=== PATIENT | female | born 1940 | race Caucasian/White ===

== ENCOUNTER → 2017-10-26 13:19 | Outpatient (POV) | payer MEDICARE, OTHER, SELFPAY | PROVIDERS: PCP Internal Medicine; Visit Provider Internal Medicine | DX: Z00.00 Encounter for general adult medical examination without abnormal findings (principal) ==

== ENCOUNTER 2018-01-21 13:58 | Observation (INO) ==
--- NOTE | 2018-01-21 14:31 | Emergency Department Note ---
ED Disposition Clinical Impression: COPD exacerbation Disposition: Still a Patient Condition on Discharge: Fair Referrals: Eric Sosa [Primary Care Provider] - - Critical Care Critical Care Time: No Attestation: On 01/21/18, the high probability of a clinically significant, sudden or life threatening deterioration of the following system(s) required my full and direct attention, intervention and personal management. The time I documented below is in addition to time spent performing reported procedures but includes the following listed in this critical care notation. Medical Decision Making - Miky Inquiry Pt receiving controlled substance: No Vital Signs: 01/21/18 14:07 01/21/18 14:30 01/21/18 15:19 Temperature 98.4 F Temperature Source Oral Pulse Rate 72 73 Pulse Rate [Apical] 72 Respiratory Rate 20 Blood Pressure [Right Arm] 140/72 Blood Pressure Mean [Right Arm] 94 Blood Pressure Source [Right Arm] Automatic Cuff Blood Pressure Position [Right Arm] Sitting 02 Sat by Pulse Oximetry 95 Oxygen Delivery Method Room Air 01/21/18 16:23 Temperature Temperature Source Pulse Rate Pulse Rate [Apical] 70 Respiratory Rate Blood Pressure [Right Arm] 133/68 Blood Pressure Mean [Right Arm] 89 Blood Pressure Source [Right Arm] Automatic Cuff Blood Pressure Position [Right Arm] Sitting 02 Sat by Pulse Oximetry 96 Oxygen Delivery Method Room Air - Lab Data Lab Results 01/21/18 14:55: WBC 6.0, RBC 4.22, Hgb 11.5 L, Hct 35.8 L, MCV 84.8, MCH 27.2, MCHC 32.1, RDW 15.5, Plt Count 416, MPV 7.2 L, Neut % (Auto) 54.4, Lymph % (Auto) 21.4, [place] % (Auto) 7.2, Eos % (Auto) 16.3 H, Baso % (Auto) 0.6, Neut # (Auto) 3.3, Lymph # (Auto) 1.3, [place] # (Auto) 0.4, Eos # (Auto) 1.0 H, Baso # (Auto) 0.0 01/21/18 14:55: Sodium 141, Potassium 4.2, Chloride 103, Carbon Dioxide 28, Anion Gap 14.2, BUN 21 H, Creatinine 1.37 H, Estimated Creat Clear 38, Estimated GFR 37 L, Est GFR ( Amer) 45 L, Glucose 109 H, Calcium 9.4, Total Bilirubin 0.3, AST 12 L, ALT 27, Alkaline Phosphatase 107, Troponin I < 0.02, Total Protein 7.2, Albumin 3.3 L, Globulin 3.9 H, Albumin/Globulin Ratio 0.8 L 01/21/18 14:55: Lactate 1.6 01/21/18 14:55: B-Natriuretic Peptide 128 H Result diagrams: 01/21/18 14:55 01/21/18 14:55 Orders (Tests/Meds): ED MEDICATIONS Discontinued Medications Generic Name Dose Route Start Last Admin Trade Name Freq PRN Reason Stop Dose Admin Albuterol/Ipratropium 3 ml 01/21/18 14:26 01/21/18 14:30 Duoneb 3ml [facility] 01/21/18 14:27 3 ml ONCE ONE Administration Albuterol/Ipratropium 3 ml 01/21/18 15:07 01/21/18 15:19 Duoneb 3ml Neb 01/21/18 15:08 3 ml ONCE ONE Administration Methylprednisolone Sodium Succinate 125 mg 01/21/18 14:41 01/21/18 16:01 Solu-Medrol 125mg/2ml Vial IV 01/21/18 14:42 125 mg ONCE ONE Administration ORDERS Category Date Time Status Chest XR -- portable [XR chest portable] Stat Exams 01/21/18 14:26 Taken Upper Respiratory Panel, PCR Stat Lab 01/21/18 15:18 Ordered Blood Culture Stat Micro 01/21/18 14:55 Received - Radiology Data #1 Image(s): Chest Image Reviewed: Yes I reviewed the patient's radiology image Preliminary Findings: Normal/NAD - ECG Data Tracing #1 EKG interpreted by Slick Segura MD: Rhythm: sinus Rate: 72 Mertens: normal Ectopy: none Conduction: normal ST Segment Changes: none T Wave Changes: none Q Waves: none No evidence of acute ischemia or injury Normal electrocardiogram - Physician Consults Physician Consulted: Christian Gross Time: 16:49 Reason -: Admission Comment/Response: Agrees to admit the patient to the hospital. We discussed the patient's clinical information, including history, exam, laboratory and radiology results and ED course. Per hospital procedure, I will write temporary bridge inpatient orders on the patient. Specific orders requested by the admitting physician: Continue nebulizer treatments and steroids, oxygen. No antibiotics at this time. - Reevaluation(s) Time: 15:57 Reevaluation #1: Improved, but still wheezing throughout. Pulse ox 90-91%. Discussed disposition. Patient and family would prefer to stay overnight. General Adult HPI - General Chief complaint: Shortness of Breath/Dyspnea Stated complaint: coughing, soa, wheezing Time Seen by Provider: 01/21/18 14:31 Mode of Arrival: Wheelchair Limitations: No Limitations Description of Symptoms (Recalled from ER Triage Doc. by RN): Pt reports dry hacking cough, pt reports she has been having "coughing fits", pt reports "when I have these fits I can't catch my breath". Pt reports coughing fits first began Wednesday of this week. Pt daughter reports pt has been wheezing. Pt reports her chest has been feeling tight - History of Present Illness HPI narrative: Has a cough with clear phlegm, shortness of breath, wheezing since Wednesday. No rhinorrhea or sore throat. No fever noted. She had some chest pain the first day, but none since. She has COPD. She is on inhalers, but not nebulizers. She is not on home oxygen. She is a former smoker. - Related Data Home Medications Medication Instructions Recorded Confirmed Aspirin [Aspir 81] 81 mg PO DAILY 07/09/17 01/21/18 Atorvastatin Calcium [Atorvastatin 80 mg PO HS 07/09/17 01/21/18 80mg Tab] Cholecalciferol (Vitamin D3) 50,000 unit PO DAILY 07/09/17 01/21/18 [Vitamin D3 50,000 unit Cap] Multivitamin/Iron/Folic Acid 1 each PO DAILY 07/09/17 01/21/18 [Multi Complete-Iron Tablet] Tiotropium [place] [Spiriva 1 puff INHALATION DAILY 07/09/17 01/21/18 18mcg/puff inhaler] Amlodipine Besylate [Norvasc 5mg 5 mg PO DAILY 07/20/17 01/21/18 tablet] LORazepam [Ativan 1mg tablet] 1 mg PO ONCE PRN 07/20/17 01/21/18 Metoprolol Tartrate 50 mg PO BID 07/20/17 01/21/18 Gabapentin [Gabapentin 300mg Cap] 300 mg PO DAILY 01/21/18 01/21/18 Lisinopril [Lisinopril 5mg Tablet] 5 mg PO DAILY 01/21/18 01/21/18 Omeprazole [Omeprazole 20mg 20 mg PO DAILY 01/21/18 01/21/18 Capsule] Potassium Chloride [K-Tab ER 10 20 meq PO DAILY 01/21/18 01/21/18 mEq] Sertraline HCl [Zoloft 50mg tablet] 50 mg PO HS 01/21/18 01/21/18 hydroCHLOROthiazide [HCTZ 25mg 25 mg PO DAILY 01/21/18 01/21/18 tab] Allergies Allergy/AdvReac Type Severity Reaction Status Date / Time adhesive tape Allergy Intermediate I-RASH Verified 07/09/17 08:55 poison ted extract Allergy Unknown "COVERS Verified 07/09/17 08:55 BODY" [facility] History I have reviewed the patient's past medical history: Yes Medical History: Reports:: Coronary Artery Disease, Hyperlipidemia, Hypertension, Lung Disease (COPD), Seizures Denies:: Diabetes Mellitus Type 1, Diabetes Mellitus Type 2, Internal Pac emaker Laterality Cases: Bilateral: Tonsillectomy Other Surgeries: Yes: Cardiac Catheterization. No: Pacemaker - Social History Smoking Status: Former smoker Alcohol Intake: never - Psychiatric History Expresses thoughts of harming self/others: None Suicide Plan Description: No Plan ROS Obtained: Yes All systems reviewed & no additional complaints - Constitutional Constitutional: Denies fever(s) - ENT Ears, Nose, Mouth, and Throat: Denies nasal discharge, Denies sore throat - Cardiovascular Cardiovascular: Reports chest pain, Reports leg edema (Chronic mild left leg edema) - Respiratory Respiratory: Yes cough, Yes dyspnea, Yes wheezing - Gastrointestinal Gastrointestingal: Denies: diarrhea, vomiting - Neurologic Neurologic: Reports other (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 Absent: distention, tenderness - Expanded Lower Extremity Exam Left Comment: Minimal pitting edema left leg - Neurological Exam Neurological exam: Present: alert, oriented X3, motor sensory deficit (Left hemiparesis, particularly left arm) - Psychiatric Psychiatric exam: Present: normal affect - Skin Skin exam: Present: warm, dry
[2018-01-21 15:12] LABS: Basophils % 0.6 % (0.1-2.0); Eosinophils % 16.3 % (0.1-12.0); Hematocrit 35.8 % (37.0-47.0); Hemoglobin 11.5 g/dL (12.2-16.2); Lymphocytes # 1.3 K/mm3 (0.7-4.5); Lymphocytes % 21.4 % (10-50); Mean Corpuscular HGB Conc 32.1 g/dL (31.8-35.4); Mean Corpuscular Hemoglobin 27.2 pg (27.0-31.2); Mean Corpuscular Volume 84.8 fl (81-99); Mean Platelet Volume 7.2 fl (7.4-10.4); Monocytes # 0.4 K/mm3 (0.1-1.0); Monocytes % 7.2 % (1.7-9.3); Neutrophils # 3.3 K/mm3 (1.8-7.8); Neutrophils % 54.4 % (37.0-80.0); Platelet Count 416 K/mm3 (142-424); Red Blood Count 4.22 M/mm3 (4.20-5.40); Red Cell Distribution Width 15.5 % (11.5-17.5)
[2018-01-21 15:27] LABS: Alanine Aminotransferase 27 U/L (12-78); Albumin Level 3.3 gm/dL (3.4-5.0); Albumin/Globulin Ratio 0.8 (1.1-1.8); Alkaline Phosphatase 107 U/L (46-116); Anion Gap 14.2 mEq/L (5-15); Aspartate Amino Transferase 12 U/L (15-37); Bilirubin,Total 0.3 mg/dL (0.2-1.0); Blood Urea Nitrogen 21 mg/dL (7-18); Calcium 9.4 mg/dL (8.5-10.1); Carbon Dioxide 28 mmol/L (21.0-32.0); Chloride 103 mmol/L (98-107); Globulin 3.9 gm/dl (1.3-3.2); Glucose 109 mg/dL (74-106); Potassium 4.2 mmoL/L (3.5-5.1); Sodium 141 mmol/L (136-145); Total Protein,Serum 7.2 gm/dL (6.4-8.2)
--- NOTE | 2018-01-22 09:44 | H&P/Discharge Summary ---
General - General Admission date:: 01/21/18 Discharge date: 01/22/18 *Admission Date: 01/21/18 *Chief complaint: Shortness of breath *History of present illness: Ms. Kwok is a 77-year-old female with history of COPD, and other comorbidities who presented with worsening cough, shortness of breath and slight increase in sputum production. Initially presented to the ER due to her shortness of breath, was a started on steroids and supplemental oxygen. Denies syncope, chest pain, palpitations, fevers, emesis, hemoptysis. Reports feeling better after getting nebulizers over the course of the evening and oxygen overnight. Antibiotics were not initially started. Chest x-ray was therefore pneumonia. Admitted to medicine service for further management. [facility] History I have reviewed the patient's past medical history: Yes Medical History: Reports:: Coronary Artery Disease, Hyperlipidemia, Hypertension, Lung Disease (COPD), Seizures Denies:: Cancer, Diabetes Mellitus Type 1, Diabetes Mellitus Type 2, Internal Pacemaker, MRSA Other Medical History: Reports: Arthritis, Cataracts Laterality Cases: Bilateral: Tonsillectomy Other Surgeries: Yes: Cardiac Catheterization. No: Pacemaker Amputation: No Fractures: No - *Social History Educational Level: Completed High School Smoking Status: Former smoker Tobacco Type: cigarettes Smoking End Date: 2005 Alcohol Intake: never Occupational Status: retired Housing: house Household Members: spouse - Psychiatric History Expresses thoughts of harming self/others: None Suicide Plan Description: No Plan *Family Hx:: Cancer, Coronary Artery Disease, Heart Attack, Hyperlipidemia, Hypertension Review of Systems - Review of Systems Review of systems:: pertinent systems reviewed and negative unless documented below - *Neurologic Reports other (Left hemiparesis from prior CVA) Exam Vital signs and Labs for Last 24 Hours: Temp Pulse Resp BP Pulse Ox 97.3 F L 84 19 105/48 L 95 01/22/18 08:00 01/22/18 08:00 01/22/18 08:00 01/22/18 08:00 01/22/18 08:00 Laboratory Results - last 24 hr 01/21/18 14:55: WBC 6.0, RBC 4.22, Hgb 11.5 L, Hct 35.8 L, MCV 84.8, MCH 27.2, MCHC 32.1, RDW 15.5, Plt Count 416, MPV 7.2 L, Neut % (Auto) 54.4, Lymph % (Auto) 21.4, [place] % (Auto) 7.2, Eos % (Auto) 16.3 H, Baso % (Auto) 0.6, Neut # (Auto) 3.3, Lymph # (Auto) 1.3, [place] # (Auto) 0.4, Eos # (Auto) 1.0 H, Baso # (Auto) 0.0 01/21/18 14:55: Sodium 141, Potassium 4.2, Chloride 103, Carbon Dioxide 28, Anion Gap 14.2, BUN 21 H, Creatinine 1.37 H, Estimated Creat Clear 38, Estimated GFR 37 L, Est GFR ( Amer) 45 L, Glucose 109 H, Calcium 9.4, Total Bilirubin 0.3, AST 12 L, ALT 27, Alkaline Phosphatase 107, Troponin I < 0.02, Total Protein 7.2, Albumin 3.3 L, Globulin 3.9 H, Albumin/Globulin Ratio 0.8 L 01/21/18 14:55: Lactate 1.6 01/21/18 14:55: B-Natriuretic Peptide 128 H I & O for Last 24 hours: Intake & Output 01/19/18 01/20/18 01/21/18 01/22/18 23:59 23:59 23:59 23:59 Intake Total 130 / 130 370 / 370 Output Total 240 / 240 Balance -110 / -110 370 / 370 Weight 74.106 kg - *Routine HEENT Exam Head: Present: normocephalic, atraumatic Eye: Present: EOMI, PERRL ENT: Present: mucous membranes moist - *Routine Neck Exam Present: supple. Absent: JVD, lymphadenopathy - *Routine Respiratory Exam Present: prolonged expiratory phase, diminished air movement. Absent: rales, wheezes, crackles - *Routine Cardiovascular Exam Present: RRR, Normal S1, Normal S2. Absent: murmur - *Routine Abdominal Exam Present: soft, normoactive bowel sounds. Absent: tenderness - *Routine Rectal Exam Patient deferred: visual exam - *Routine Exam Patient deferred: external exam - *Routine Extremities Exam Absent: cyanosis, clubbing, edema - *Routine Skin Exam Present: intact. Absent: cyanosis, erythema - *Routine Neurological Exam Present: alert, oriented X3, CN II-XII intact. Absent: altered mental status Hospital Course Hospital Course: Admitted to the floor for further management of her COPD exacerbation. Improved overnight. Assessed for home oxygen requirement this morning with normal O2 sats greater than 90. Symptoms have defervesced. Meeting criteria for discharge home. We will initiate antibiotics in addition oral steroids for 5 days of antibiotic and steroid therapy. Additionally provided sample of steel toe for daily LABA/LAMA combo therapy. Prescribe spacer to use with albuterol at home. Plan to transition back to Spiriva after completion of Stiolto. Results Labs on day of discharge: Labs from last 24 hours 01/21/18 01/21/18 01/21/18 14:55 14:55 14:55 WBC RBC Hgb Hct MCV MCH MCHC RDW Plt Count MPV Neut % (Auto) Lymph % (Auto) [place] % (Auto) Eos % (Auto) Baso % (Auto) Neut # (Auto) Lymph # (Auto) [place] # (Auto) Eos # (Auto) Baso # (Auto) Sodium 141 Potassium 4.2 Chloride 103 Carbon Dioxide 28 Anion Gap 14.2 BUN 21 H Creatinine 1.37 H Estimated Creat Clear 38 Estimated GFR 37 L Est GFR ( Amer) 45 L Glucose 109 H Lactate 1.6 Calcium 9.4 Total Bilirubin 0.3 AST 12 L ALT 27 Alkaline Phosphatase 107 Troponin I < 0.02 B-Natriuretic Peptide 128 H Total Protein 7.2 Albumin 3.3 L Globulin 3.9 H Albumin/Globulin Ratio 0.8 L 01/21/18 14:55 WBC 6.0 RBC 4.22 Hgb 11.5 L Hct 35.8 L MCV 84.8 MCH 27.2 MCHC 32.1 RDW 15.5 Plt Count 416 MPV 7.2 L Neut % (Auto) 54.4 Lymph % (Auto) 21.4 [place] % (Auto) 7.2 Eos % (Auto) 16.3 H Baso % (Auto) 0.6 Neut # (Auto) 3.3 Lymph # (Auto) 1.3 [place] # (Auto) 0.4 Eos # (Auto) 1.0 H Baso # (Auto) 0.0 Sodium Potassium Chloride Carbon Dioxide Anion Gap BUN Creatinine Estimated Creat Clear Estimated GFR Est GFR ( Amer) Glucose Lactate Calcium Total Bilirubin AST ALT Alkaline Phosphatase Troponin I B-Natriuretic Peptide Total Protein Albumin Globulin Albumin/Globulin Ratio DS: Diagnosis - Discharge Diagnosis (1) COPD exacerbation Status: Acute Discharge Medications - Medications for Discharge Home Medication List at Discharge: New levoFLOXacin [Levaquin 500mg tab] 500 mg PO DAILY #5 tab predniSONE [Deltasone 10mg tablet] 40 mg PO DAILY 5 Days #20 tablet Inhaler, Assist Devices [Aerochamber/Optihaler (Adult)] 1 unit MC DIRECTED #1 kit Continue Multivitamin/Iron/Folic Acid [Multi Complete-Iron Tablet] 1 each PO DAILY Aspirin [Aspir 81] 81 mg PO DAILY Tiotropium [place] [Spiriva 18mcg/puff inhaler] 1 puff INHALATION DAILY Atorvastatin Calcium [Atorvastatin 80mg Tab] 80 mg PO HS Metoprolol Tartrate 50 mg PO BID Amlodipine Besylate [Norvasc 5mg tablet] 5 mg PO DAILY LORazepam [Ativan 1mg tablet] 1 mg PO NEEDED PRN PRN Reason: Anxiety Omeprazole [Omeprazole 20mg Capsule] 20 mg PO DAILY hydroCHLOROthiazide [HCTZ 25mg tab] 25 mg PO DAILY Gabapentin [Gabapentin 300mg Cap] 300 mg PO HS Lisinopril [Lisinopril 5mg Tablet] 5 mg PO DAILY Cholecalciferol (Vitamin D3) [Vitamin D3 50,000 unit Cap] 50,000 unit PO DAILY Potassium Chloride [K-Tab ER 10 mEq] 20 meq PO DAILY Sertraline HCl [Zoloft 50mg tablet] 50 mg PO HS Disposition Disposition: Home, Self-Care
--- NOTE | 2018-01-22 11:37 | Pharmacy Consult Notes ---
[facility] Pharmacy VTE Monitoring - Patient Demographics Admission date: 01/21/18 Report Date: 01/22/18 Time: 11:36 Allergies/Adverse Reactions: Patient Allergies adhesive tape Allergy (Intermediate, Verified 07/09/17 08:55) I-RASH poison ted extract Allergy (Unknown, Verified 07/09/17 08:55) "COVERS BODY" Height: 1.57 m Weight: 74.106 kg Patient Problems: Current Active Problems COPD exacerbation (Acute) - VTE Risk Labs: VTE Related Lab Results Hgb 11.5 g/dL (12.2-16.2) L 01/21/18 14:55 Hct 35.8 % (37.0-47.0) L 01/21/18 14:55 Plt Count 416 K/mm3 (142-424) 01/21/18 14:55 BUN 21 mg/dL (7-18) H 01/21/18 14:55 Creatinine 1.37 mg/dL (0.55-1.02) H 01/21/18 14:55 Estimated Creat Clear 38 mL/min (50-200) 01/21/18 14:55 VTE Score: 4 VTE Risk Level: Low Risk - Prophylaxis VTE Prophylaxis Ordered?: Yes Types of VTE Prophylaxis: TEDS Knee High Location of Applied Device: Bilateral Lower Extremeties
== END 2018-01-22 13:32 | disposition home or self-care (01) ==
LOC: 2ND 13:58 → ER 13:58 → 2ND 18:15
PROVIDERS: ADMIT Family Medicine; ATTEND Internal Medicine Adolescent Medicine

== ENCOUNTER 2018-03-06 21:02 | Inpatient (IN) ==
[2018-03-06 22:00] LABS: Basophils # 0.1 K/mm3 (0-0.2); Basophils % 0.5 % (0.1-2.0); Eosinophils # 0.5 K/mm3 (0.0-0.4); Eosinophils % 3.8 % (0.1-12.0); Hemoglobin 10.9 g/dL (12.2-16.2); Lymphocytes # 1.6 K/mm3 (0.7-4.5); Lymphocytes % 12.6 % (10-50); Mean Corpuscular Hemoglobin 27.2 pg (27.0-31.2); Mean Corpuscular Volume 85.1 fl (81-99); Mean Platelet Volume 7.9 fl (7.4-10.4); Monocytes # 0.9 K/mm3 (0.1-1.0); Monocytes % 6.9 % (1.7-9.3); Neutrophils # 9.6 K/mm3 (1.8-7.8); Neutrophils % 76.3 % (37.0-80.0); Platelet Count 360 K/mm3 (142-424); Red Cell Distribution Width 16.1 % (11.5-17.5); White Blood Count 12.6 K/mm3 (4.8-10.8)
[2018-03-06 22:13] LABS: Alanine Aminotransferase 25 U/L (12-78); Albumin Level 3.4 gm/dL (3.4-5.0); Albumin/Globulin Ratio 1.2 (1.1-1.8); Alkaline Phosphatase 99 U/L (46-116); Aspartate Amino Transferase 31 U/L (15-37); Bilirubin,Total 0.4 mg/dL (0.2-1.0); Blood Urea Nitrogen 19 mg/dL (7-18); Carbon Dioxide 23 mmol/L (21.0-32.0); Chloride 105 mmol/L (98-107); Globulin 2.9 gm/dl (1.3-3.2); Glucose 98 mg/dL (74-106); Sodium 140 mmol/L (136-145); Total Protein,Serum 6.3 gm/dL (6.4-8.2)
[2018-03-06 22:18] LABS: Calcium 8.8 mg/dL (8.5-10.1)
[2018-03-06 23:00] LABS: Microscopic, Urine URINE MICROSCOPIC (MICROSCOPIC)
[2018-03-06 23:03] LABS: Appearance,Urine CLEAR (Clear); Blood, Urine Negative (Negative); Color,Urine YELLOW (Yellow); Glucose,Urine (UA) Negative (Negative); Ketones,Urine TRACE (Negative); Leukocyte Esterase,Urine Negative (Negative); PH,Urine 5.5 (5.0-8.5); Protein,Urine Negative (Negative); Specific Gravity, Urine 1.025 (1.005-1.030); Urobilinogen,Urine 0.2 EU/dl (0.2)
--- NOTE | 2018-03-06 23:03 | Emergency Department Note ---
ED Disposition Clinical Impression: Renal insufficiency Community acquired pneumonia Qualifiers: Laterality: left Lung location: lower lobe of lung Qualified Code(s): J18.1 - Lobar pneumonia, unspecified organism Anemia Qualifiers: Anemia type: unspecified type Qualified Code(s): D64.9 - Anemia, unspecified Disposition: Admitted as Observation Condition on Discharge: Good Referrals: Eric Sosa [Primary Care Provider] - - Critical Care Critical Care Time: No Attestation: On 03/06/18, the high probability of a clinically significant, sudden or life threatening deterioration of the following system(s) required my full and direct attention, intervention and personal management. The time I documented below is in addition to time spent performing reported procedures but includes the following listed in this critical care notation. Medical Decision Making - Medical Records Medical records reviewed: Yes: I reviewed the patient's medical records. - Miky Inquiry Pt receiving controlled substance: No Vital Signs: 03/06/18 21:05 03/06/18 21:26 03/06/18 21:56 Temperature 99.1 F 101.4 F H Temperature Source Oral Rectal Pulse Rate 84 Pulse Rate [Right] 92 H Respiratory Rate 26 H Blood Pressure [Right Arm] 170/62 H Blood Pressure Mean [Right Arm] 98 02 Sat by Pulse Oximetry 89 L Oxygen Delivery Method Room Air - Lab Data Lab results reviewed: Yes: I reviewed the patient's lab results. Lab Results 03/06/18 21:34: WBC 12.6 H, RBC 4.00 L, Hgb 10.9 L, Hct 34.0 L, MCV 85.1, MCH 27.2, MCHC 32.0, RDW 16.1, Plt Count 360, MPV 7.9, Neut % (Auto) 76.3, Lymph % (Auto) 12.6, [place] % (Auto) 6.9, Eos % (Auto) 3.8, Baso % (Auto) 0.5, Neut # (Auto) 9.6 H, Lymph # (Auto) 1.6, [place] # (Auto) 0.9, Eos # (Auto) 0.5 H, Baso # (Auto) 0.1 03/06/18 21:34: Sodium 140, Potassium 5.0, Chloride 105, Carbon Dioxide 23, Anion Gap 17.0 H, BUN 19 H, Creatinine 1.37 H, Estimated Creat Clear 38, Estimated GFR 37 L, Est GFR ( Amer) 45 L, Glucose 98, Calcium 8.8, Total Bilirubin 0.4, AST 31, ALT 25, Alkaline Phosphatase 99, Troponin I < 0.02, Total Protein 6.3 L, Albumin 3.4, Globulin 2.9, Albumin/Globulin Ratio 1.2 03/06/18 21:34: Lactate 1.5 03/06/18 21:34: Influenza Type A Ag Negative, Influenza Type B Ag Negative Result diagrams: 03/06/18 21:34 03/06/18 21:34 Orders (Tests/Meds): ED MEDICATIONS Generic Name Dose Route Start Last Admin Trade Name Freq PRN Reason Stop Dose Admin Sodium Chloride 10 ml 03/06/18 21:15 Saline Flush 10ml Syringe IV 04/05/18 21:14 NEEDED PRN Maintain IV Site Sodium Chloride 3 ml 03/06/18 21:19 Sodium Chloride 3% 15ml [facility] 04/05/18 21:18 ONCE PRN INDUCE SPUTUM COLLECTION Discontinued Medications Generic Name Dose Route Start Last Admin Trade Name Freq PRN Reason Stop Dose Admin Acetaminophen 1,000 mg 03/06/18 21:40 03/06/18 21:41 Tylenol 500mg Tablet PO 03/06/18 21:41 1,000 mg ONCE ONE Administration Albuterol/Ipratropium 3 ml 03/06/18 21:20 03/06/18 21:56 Duoneb 3ml [facility] 03/06/18 21:21 3 ml ONCE ONE Administration Methylprednisolone Sodium Succinate 125 mg 03/06/18 21:20 03/06/18 21:41 Solu-Medrol 125mg/2ml Vial IV 03/06/18 21:21 125 mg ONCE ONE Administration ORDERS Category Date Time Status XR chest portable Stat Exams 03/06/18 21:15 Taken UA [Urinalysis and Microscopic] Stat Lab 03/06/18 22:55 Received Blood Culture Stat Micro 03/06/18 21:34 Received Sputum Culture & Gram Stain Stat Micro 03/06/18 21:23 Received ECG Request by /Gomez Stat Y 03/06/18 21:15 Ordered - Radiology Data #1 Image(s): Chest Image Reviewed: Yes I reviewed the patient's radiology image Preliminary Findings: Abnormal (lt lower lobe ) - ECG Data Tracing #1 Normal Sinus Rhythm: Yes Ischemic changes: non-specific ST-T wave changes - Physician Consults Physician Consulted: [email or web address] Reason -: Admission Resp/SOB HPI - General Chief Complaint: Shortness of Breath/Dyspnea Stated Complaint: Cough, SOA Time Seen by Provider: 03/06/18 21:45 Mode of Arrival: Wheelchair Source of Information: Patient, Spouse, Relative, Medical Record Limitations: No Limitations Description of Symptoms (Recalled from ER Triage Doc. by RN): Pt here today states for 4 days she has had a cough, SOA, and weakness, pt states she been coughing up green thick sputum. - History of Present Illness over the last few days progressive prod cough - green sputum with no rash and no hemoptysis- MD Complaint: shortness of breath, cough Onset (ago): day(s) Severity: moderate Associated symptoms: denies other symptoms Treatment prior to arrival: none - Related Data Home oxygen amount: none Home Medications Medication Instructions Recorded Confirmed Aspirin [Aspir 81] 81 mg PO DAILY 07/09/17 03/06/18 Atorvastatin Calcium [Atorvastatin 80 mg PO HS 07/09/17 03/06/18 80mg Tab] Multivitamin/Iron/Folic Acid 1 each PO DAILY 07/09/17 03/06/18 [Multi Complete-Iron Tablet] Tiotropium [place] [Spiriva 1 puff INHALATION DAILY 07/09/17 03/06/18 18mcg/puff inhaler] Amlodipine Besylate [Norvasc 5mg 5 mg PO DAILY 07/20/17 03/06/18 tablet] Metoprolol Tartrate 50 mg PO BID 07/20/17 03/06/18 Gabapentin [Gabapentin 300mg Cap] 300 mg PO HS 01/21/18 03/06/18 Lisinopril [Lisinopril 5mg Tablet] 5 mg PO DAILY 01/21/18 03/06/18 Omeprazole [Omeprazole 20mg 20 mg PO DAILY 01/21/18 03/06/18 Capsule] Potassium Chloride [K-Tab ER 10 20 meq PO DAILY 01/21/18 03/06/18 mEq] Sertraline HCl [Zoloft 50mg tablet] 50 mg PO HS 01/21/18 03/06/18 hydroCHLOROthiazide [HCTZ 25mg 25 mg PO DAILY 01/21/18 03/06/18 tab] Cholecalciferol (Vitamin D3) 2,000 unit PO DAILY 01/22/18 03/06/18 [Vitamin D3] Allergies Allergy/AdvReac Type Severity Reaction Status Date / Time adhesive tape Allergy Intermediate I-RASH Verified 07/09/17 08:55 poison ted extract Allergy Unknown "COVERS Verified 07/09/17 08:55 BODY" [facility] History - Hepatitis A Screen Drug use history?: No High risk sexual behaviors?: No History of sexually transmitted infection?: No Currently employed?: No Childcare worker?: No Do you have indoor plumbing?: Yes Do you have electricity?: Yes Attestation statement:: This patient has been screened for Hepatitis A risk factors. I have reviewed the patient's past medical history: Yes Medical History: Reports:: Coronary Artery Disease, Hyperlipidemia, Hypertension, Lung Disease (COPD), Seizures Denies:: Cancer, Diabetes Mellitus Type 1, Diabetes Mellitus Type 2, Internal Pacemaker, MRSA Other Medical History: Reports: Arthritis, Cataracts Laterality Cases: Bilateral: Tonsillectomy Other Surgeries: Yes: Cardiac Catheterization. No: Pacemaker Amputation: No Fractures: No - Social History Smoking Status: Former smoker Tobacco Type: cigarettes Alcohol Intake: never Occupational Status: retired Housing: house Household Members: spouse - Psychiatric History Expresses thoughts of harming self/others: None Suicide Plan Description: No Plan Family Hx:: Cancer, Coronary Artery Disease, Heart Attack, Hyperlipidemia, Hypertension ROS Obtained: Yes All systems reviewed & no additional complaints - Constitutional Constitutional: Reports fever(s) - Eyes Eyes: Denies change in vision - ENT Ears, Nose, Mouth, and Throat: Denies sore throat - Cardiovascular Cardiovascular: Denies chest pain, Reports dyspnea - Respiratory Respiratory: Yes as per HPI, Yes change in phlegm color, Yes cough, No coughing up blood - Gastrointestinal Gastrointestingal: Denies: vomiting - Genitourinary Female Genitourinary: Denies dysuria - Integumentary/Breasts Skin/Breast: Denies rash - Neurologic Neurologic: Denies seizure-like activity Physical Exam - General General appearance: alert, in no apparent distress - Head Head exam: normocephalic - Eye Eye exam: Present: PERRL, EOMI. Absent: scleral icterus - ENT ENT exam: Present: mucous membranes dry - Neck Neck exam: Present: trachea midline - Respiratory Respiratory exam: Present: other (positive rhonchi ). Absent: respiratory distress - Cardiovascular Cardiovascular exam: Present: regular rate, systolic murmur, +S4 - Abdominal Exam Abdominal exam: Present: soft - Extremities Exam Extremities exam: Present: full ROM - Neurological Exam Neurological exam: Present: alert, oriented X3, CN II-XII intact - Psychiatric Psychiatric exam: Present: normal affect - Skin Skin exam: Absent: rash
[2018-03-06 23:06] LABS: Bilirubin,Urine Negative (Negative)
[2018-03-06 23:07] LABS: Amorphous Sediment,Urine Trace /lpf; Squamous Epithelial Cell,Urine Occasional #/hpf (0-5)
[2018-03-07 05:23] LABS: Basophils % 0.1 % (0.1-2.0); Eosinophils % 0.1 % (0.1-12.0); Hematocrit 31.8 % (37.0-47.0); Hemoglobin 9.9 g/dL (12.2-16.2); Lymphocytes # 0.6 K/mm3 (0.7-4.5); Lymphocytes % 6.6 % (10-50); Mean Corpuscular HGB Conc 31.1 g/dL (31.8-35.4); Mean Corpuscular Volume 86.8 fl (81-99); Mean Platelet Volume 8.1 fl (7.4-10.4); Monocytes # 0.2 K/mm3 (0.1-1.0); Monocytes % 1.7 % (1.7-9.3); Neutrophils # 8.3 K/mm3 (1.8-7.8); Neutrophils % 91.4 % (37.0-80.0); Platelet Count 260 K/mm3 (142-424); Red Blood Count 3.66 M/mm3 (4.20-5.40); Red Cell Distribution Width 16.2 % (11.5-17.5); White Blood Count 9.1 K/mm3 (4.8-10.8)
[2018-03-07 05:38] LABS: Anion Gap 16.3 mEq/L (5-15); Blood Urea Nitrogen 19 mg/dL (7-18); Calcium 8.1 mg/dL (8.5-10.1); Carbon Dioxide 22 mmol/L (21.0-32.0); Chloride 107 mmol/L (98-107); Potassium 4.3 mmoL/L (3.5-5.1); Sodium 141 mmol/L (136-145)
[2018-03-07 05:47] LABS: Glucose 178 mg/dL (74-106)
[2018-03-07 06:11] LABS: Hypochromasia 1+; Lymphocytes % 4 % (10-50); Neutrophils % 90 % (42-76); Total Cells Counted 100; Toxic Granulation 1+
--- NOTE | 2018-03-07 07:36 | Pharmacy Consult Notes ---
[facility] Pharmacy VTE Monitoring - Patient Demographics Admission date: 03/07/18 Report Date: 03/07/18 Time: 07:36 Allergies/Adverse Reactions: Patient Allergies adhesive tape Allergy (Intermediate, Verified 07/09/17 08:55) I-RASH poison ted extract Allergy (Unknown, Verified 07/09/17 08:55) "COVERS BODY" Height: 1.63 m Weight: 74.984 kg Patient Problems: Current Active Problems Community acquired pneumonia (Acute) Renal insufficiency (Acute) Anemia (Acute) - VTE Risk Labs: VTE Related Lab Results Hgb 9.9 g/dL (12.2-16.2) L 03/07/18 05:15 Hct 31.8 % (37.0-47.0) L 03/07/18 05:15 Plt Count 260 K/mm3 (142-424) D 03/07/18 05:15 BUN 19 mg/dL (7-18) H 03/07/18 05:15 Creatinine 1.31 mg/dL (0.55-1.02) H 03/07/18 05:15 Estimated Creat Clear 41 mL/min (50-200) 03/07/18 05:15 Was VTE Risk Assessment Performed: Yes VTE Score: 7 VTE Risk Level: Moderate Risk Clinical Trial Participant: No - Prophylaxis VTE Prophylaxis Ordered?: Yes Types of VTE Prophylaxis: TEDS Knee High
[2018-03-07 09:47] LABS: Coronavirus 229E Not Detected (NotDetected); Coronavirus NL63 Not Detected (NotDetected); Coronavirus OC43 Not Detected (NotDetected); Coronovirus HKU1,PCR Not Detected (NotDetected)
--- NOTE | 2018-03-07 11:09 | History & Physical Report ---
*Admission Date: 03/07/18 *Chief complaint: Cough and shortness of breath *History of present illness: 77 yr old female seen today after being admitted last evening through the emergency department. She reports 3-4 days of cough, progressive shortness of breath and thick sputum that is difficult to expectorate. In the emergency department she was found to have an elevated WBC, was febrile and CXR showed right lower lobe atelectasis and she was admitted for management of COPD exacerbation and presumed community acquired pneumonia. She does report a history of COPD, last hospitalized for exacerbation in December 2017. She sees her director dietetics department routinely (Dr Bhatia) and just saw him about a month ago. She has had some exposure at home to family members with mild URI symptoms. She has had influenza vaccination this season but reports she has never had a pneumococcal vaccination. [facility] History Medical History: Reports:: Atherosclerotic Heart Disease, Atrial Fibrillation, Chronic Obstructive Pulmonary Disease (COPD), Coronary Artery Disease, Cerebrovascular Accident (Hemorrhagic, with lasting left sided weakness), Gastrointestinal Bleed (gastric ulcers), Hyperlipidemia, Hypertension, Lung Disease (COPD), Myocardial Infarction, Peripheral Vascular Disease, Renal Insufficiency (baseline creatinine 1.3), Seizures Denies:: Cancer, Diabetes Mellitus Type 1, Diabetes Mellitus Type 2, Internal Pacemaker, MRSA Have you ever received a pneumonia vaccine?: No Have you received a flu vaccine this season?: Yes Other Medical History: Reports: Anemia, Arthritis, Cataracts Laterality Cases: Bilateral: Tonsillectomy Other Surgeries: Yes: Cardiac Catheterization, Tubal Ligation. No: Pacemaker Amputation: No Fractures: No Comment: Craniotomy due to intracranial hemorrhage in 2016 - *Social History Educational Level: Completed High School Smoking Status: Former smoker Tobacco Type: cigarettes # Packs/Day (cigarettes): 2 #Yrs smoked (if former smoker): 45 Smoking End Date: 2011 Alcohol Intake: never Occupational Status: retired Housing: house Household Members: spouse Travel in the last 8 weeks: None - Psychiatric History Expresses thoughts of harming self/others: None Suicide Plan Description: No Plan *Family Hx:: Cancer, Coronary Artery Disease, Heart Attack, Hyperlipidemia, Hypertension Review of Systems - Review of Systems Review of systems:: pertinent systems reviewed and negative unless documented below - Constitutional Reports chills, Reports fever(s), Reports malaise, Reports weakness - ENT Reports sore throat Comments: attributes sore throat to coughing - *Cardiovascular Reports shortness of breath - *Respiratory Reports change in phlegm color, Reports chest congestion, Reports cough, Reports shortness of breath, Reports pain with cough - *Neurologic Denies seizure-like activity Meds Home Medications Medication Instructions Recorded Confirmed Type Aspirin [Aspir 81] 81 mg PO DAILY 07/09/17 03/06/18 History Atorvastatin Calcium [Atorvastatin 80 mg PO HS 07/09/17 03/06/18 History 80mg Tab] Multivitamin/Iron/Folic Acid 1 each PO DAILY 07/09/17 03/06/18 History [Multi Complete-Iron Tablet] Tiotropium [place] [Spiriva 1 puff INHALATION DAILY 07/09/17 03/06/18 History 18mcg/puff inhaler] Amlodipine Besylate [Norvasc 5mg 5 mg PO DAILY 07/20/17 03/06/18 History tablet] Metoprolol Tartrate 50 mg PO BID 07/20/17 03/06/18 History Gabapentin [Gabapentin 300mg Cap] 300 mg PO HS 01/21/18 03/07/18 History Lisinopril [Lisinopril 5mg Tablet] 5 mg PO DAILY 01/21/18 03/06/18 History Omeprazole [Omeprazole 20mg 20 mg PO DAILY 01/21/18 03/06/18 History Capsule] Potassium Chloride [K-Tab ER 10 20 meq PO DAILY 01/21/18 03/06/18 History mEq] Sertraline HCl [Zoloft 50mg tablet] 50 mg PO HS 01/21/18 03/06/18 History hydroCHLOROthiazide [HCTZ 25mg 25 mg PO DAILY 01/21/18 03/06/18 History tab] Cholecalciferol (Vitamin D3) 2,000 unit PO DAILY 01/22/18 03/06/18 History [Vitamin D3] Allergies Allergy/AdvReac Type Severity Reaction Status Date / Time adhesive tape Allergy Intermediate I-RASH Verified 07/09/17 08:55 poison ted extract Allergy Unknown "COVERS Verified 07/09/17 08:55 BODY" Exam Vital signs and Labs for Last 24 Hours: Temp Pulse Resp BP Pulse Ox 98.2 F 89 18 138/90 100 03/07/18 08:00 03/07/18 08:00 03/07/18 08:00 03/07/18 08:00 03/07/18 08:00 Laboratory Results - last 24 hr 03/06/18 21:34: WBC 12.6 H, RBC 4.00 L, Hgb 10.9 L, Hct 34.0 L, MCV 85.1, MCH 27.2, MCHC 32.0, RDW 16.1, Plt Count 360, MPV 7.9, Neut % (Auto) 76.3, Lymph % (Auto) 12.6, [place] % (Auto) 6.9, Eos % (Auto) 3.8, Baso % (Auto) 0.5, Neut # (Auto) 9.6 H, Lymph # (Auto) 1.6, [place] # (Auto) 0.9, Eos # (Auto) 0.5 H, Baso # (Auto) 0.1 03/06/18 21:34: Sodium 140, Potassium 5.0, Chloride 105, Carbon Dioxide 23, Anion Gap 17.0 H, BUN 19 H, Creatinine 1.37 H, Estimated Creat Clear 38, Estimated GFR 37 L, Est GFR ( Amer) 45 L, Glucose 98, Calcium 8.8, Total Bilirubin 0.4, AST 31, ALT 25, Alkaline Phosphatase 99, Troponin I < 0.02, Total Protein 6.3 L, Albumin 3.4, Globulin 2.9, Albumin/Globulin Ratio 1.2 03/06/18 21:34: Lactate 1.5 03/06/18 21:34: Influenza Type A Ag Negative, Influenza Type B Ag Negative 03/06/18 22:55: Urine Color Yellow, Urine Appearance Clear, Urine pH 5.5, Ur Specific [place] 1.025, Urine Protein Negative, Urine Glucose (UA) Negative, Urine Ketones Trace, Urine Blood Negative, Urine Nitrate Negative, Urine Bilirubin Negative, Urine Urobilinogen 0.2, Ur Leukocyte Esterase Negative, Urine WBC 3-5, Ur Squamous Epith Cells Occasional, Amorphous Sediment Trace 03/07/18 02:15: Troponin I < 0.02 03/07/18 05:15: Sodium 141, Potassium 4.3, Chloride 107, Carbon Dioxide 22, Anion Gap 16.3 H, BUN 19 H, Creatinine 1.31 H, Estimated Creat Clear 41, Estimated GFR 39 L, Est GFR ( Amer) 47 L, Glucose 178 H D, Calcium 8.1 L, Magnesium 1.4, Troponin I < 0.02 03/07/18 05:15: WBC 9.1 D, RBC 3.66 L, Hgb 9.9 L, Hct 31.8 L, MCV 86.8, MCH 27.0, MCHC 31.1 L, RDW 16.2, Plt Count 260 D, MPV 8.1, Neut % (Auto) 91.4 H, Lymph % (Auto) 6.6 L, [place] % (Auto) 1.7, Eos % (Auto) 0.1, Baso % (Auto) 0.1, Neut # (Auto) 8.3 H, Lymph # (Auto) 0.6 L, [place] # (Auto) 0.2, Eos # (Auto) 0.0, Baso # (Auto) 0.0, Total Counted 100, Neutrophils % (Manual) 90 H, Band Neutrophils % 6.0, Lymphocytes % (Manual) 4 L, Toxic Granulation 1+, Platelet Estimate Normal, Hypochromasia 1+ I & O for Last 24 hours: Intake & Output 03/04/18 03/05/18 03/06/18 03/07/18 11:59 11:59 11:59 11:59 Intake Total 859 / 859 Balance 859 / 859 Weight 165 lb 5 oz Microbiology Reports for the Last 24 Hours: Microbiology 03/06/18 21:23 Sputum - Expectorated Sputum Gram Stain - Final - Constitutional no acute distress, obese, cooperative Comments: frequent cough during exam - *Routine HEENT Exam Head: Present: normocephalic, atraumatic Eye: Present: conjunctivae pink ENT: Present: mucous membranes moist - *Routine Neck Exam Present: supple. Absent: lymphadenopathy - *Routine Respiratory Exam Present: rhonchi, diminished air movement Comments: clear with cough, thick [place] sputum during exam - *Routine Cardiovascular Exam Present: RRR - *Routine Abdominal Exam Present: soft, normoactive bowel sounds. Absent: tenderness, distended - *Routine Extremities Exam Present: pulses intact. Absent: edema - *Routine Skin Exam Present: intact, warm. Absent: rash - *Routine Neurological Exam Present: oriented X3 Assessment and Plan (1) Community acquired pneumonia Current visit: Yes Status: Acute Qualifiers: Laterality: right Lung location: lower lobe of lung Qualified Code(s): J18.1 - Lobar pneumonia, unspecified organism Category: Medical Code(s): J18.9 - Pneumonia, unspecified organism CXR shows atelectasis. Consider repeat tomorrow. WBC elevated, febrile at time of admission, + sputum production. Continue treatment for CAP with ceftriaxone and azithromycin (2) Stage 3 chronic kidney disease Current visit: Yes Status: Chronic Category: Medical Code(s): N18.3 - Chronic kidney disease, stage 3 (moderate) Creatinine at baseline of 1.3 (3) Anemia Current visit: Yes Status: Chronic Qualifiers: Anemia type: unspecified type Qualified Code(s): D64.9 - Anemia, unspecified Category: Medical Code(s): D64.9 - Anemia, unspecified Denies known history of anemia but this is listed in her chart and labs over the past year have shown at least some degree of anemia. Will order some additional workup with AM labs and otherwise can be addressed as an outpatient if Hgb and Hct remain stable this admission. Reports last colonoscopy was approximately 5 years ago. (4) COPD exacerbation Current visit: Yes Status: Acute Category: Medical Code(s): J44.1 - Chronic obstructive pulmonary disease with (acute) exacerbation No wheezing at time of exam today. Continue supplemental oxygen and wean as able, nebulizer treatments and monitor
[2018-03-07 20:58] LABS: Creatine Kinase 333 U/L (26-192)
[2018-03-08 08:10] LABS: Hematocrit 31.1 % (37.0-47.0); Lymphocytes % 6.4 % (10-50); Mean Corpuscular Volume 84.3 fl (81-99); Mean Platelet Volume 7.6 fl (7.4-10.4); Monocytes # 0.5 K/mm3 (0.1-1.0); Monocytes % 3.5 % (1.7-9.3); Neutrophils # 13.5 K/mm3 (1.8-7.8); Platelet Count 338 K/mm3 (142-424); Red Blood Count 3.69 M/mm3 (4.20-5.40); Red Cell Distribution Width 16.4 % (11.5-17.5)
[2018-03-08 08:23] LABS: Anion Gap 17.3 mEq/L (5-15); Calcium 8.8 mg/dL (8.5-10.1); Potassium 4.3 mmoL/L (3.5-5.1)
--- NOTE | 2018-03-08 08:51 | Progress Note ---
Internal Medicine - PN: Subj *Date: 03/08/18 *Time: 08:00 Interval history: Episode of right sided chest "pressure last night" that was followed by bilateral neck and jaw tightness. ST depression on EKG and elevated troponin at that time. This morning reports that she is tired, did not sleep last night due to her episode of chest pain and following activities. With respect to her respiratory status, cough has lessened, shortness of breath is only with coughing episodes and she has less sputum production. Still on 2L NC. Exam Vital signs and Labs for Last 24 Hours: Temp Pulse Resp BP Pulse Ox 97.1 F L 88 20 136/62 96 03/08/18 04:00 03/08/18 06:05 03/08/18 04:00 03/08/18 04:00 03/08/18 06:05 Laboratory Results - last 24 hr 03/07/18 09:40: Chlamy pneumoniae PCR Not detected, Adenovirus (PCR) Not detected, B. pertussis DNA (PCR) Not detected, Coronavirus OC43 (PCR) Not detected, Coronavirus HKU1 (PCR) Not detected, Coronavirus 229E (PCR) Not detected, Coronavirus NL63 (PCR) Not detected, Human Metapneumovir PCR Not detected, Influenza A (H1) PCR Not detected, Influ A (H1N1/09) PCR Not detected, Influenza A (H3) PCR Not detected, Influenza Type A (PCR) Not detected, Influenza Type B (PCR) Not detected, M. pneumoniae (PCR) Not detected, Parainfluenza 1 (PCR) Not detected, Parainfluenza 2 (PCR) Not detected, Parainfluenza 3 (PCR) Not detected, Parainfluenza 4 (PCR) Not detected, RSV (PCR) Not detected, Entero/Rhino (PCR) Not detected 03/07/18 19:55: Total Creatine Kinase 333 H, CK-MB (CK-2) 5.4 H, CK-MB (CK-2) Rel Index 1.6, Troponin I < 0.02 03/07/18 23:13: Troponin I 0.05 03/08/18 02:45: Troponin I 0.14 H 03/08/18 06:35: WBC 15.0 H D, RBC 3.69 L, Hgb 10.0 L, Hct 31.1 L, MCV 84.3, MCH 27.0, MCHC 32.0, RDW 16.4, Plt Count 338 D, MPV 7.6, Neut % (Auto) 90.0 H, Lymph % (Auto) 6.4 L, [place] % (Auto) 3.5, Eos % (Auto) 0.0 L, Baso % (Auto) 0.0 L , Neut # (Auto) 13.5 H, Lymph # (Auto) 1.0, [place] # (Auto) 0.5, Eos # (Auto) 0.0, Baso # (Auto) 0.0 03/08/18 06:35: Sodium 141, Potassium 4.3, Chloride 106, Carbon Dioxide 22, Anion Gap 17.3 H, BUN 23 H, Creatinine 1.39 H, Estimated Creat Clear 39, Estimated GFR 37 L, Est GFR ( Amer) 44 L, Glucose 139 H, Calcium 8.8 I & O for Last 24 hours: Intake & Output 03/05/18 03/06/18 03/07/18 03/08/18 11:59 11:59 11:59 11:59 Intake Total 859 / 859 1119 / 1119 Output Total 500 / 500 Balance 859 / 859 619 / 619 Weight 165 lb 5 oz 167 lb 3 oz Microbiology Reports for the Last 24 Hours: Microbiology 03/06/18 21:23 Sputum - Expectorated Sputum Gram Stain - Final 03/06/18 21:23 Sputum - Expectorated Sputum Sputum Culture - Preliminary - Constitutional no acute distress Comments: up on side of bed - *Routine HEENT Exam Head: Present: normocephalic Eye: Present: conjunctivae pink ENT: Present: mucous membranes moist - *Routine Neck Exam Present: supple - *Routine Respiratory Exam Present: CTA bilaterally. Absent: accessory muscle use - *Routine Cardiovascular Exam Present: RRR. Absent: murmur - *Routine Abdominal Exam Present: soft, normoactive bowel sounds. Absent: tenderness - *Routine Extremities Exam Present: pulses intact. Absent: clubbing, edema - *Routine Skin Exam Present: intact. Absent: rash - *Routine Neurological Exam Present: oriented X3 Assessment and Plan (1) Community acquired pneumonia Current visit: Yes Status: Acute Qualifiers: Laterality: right Lung location: lower lobe of lung Qualified Code(s): J18.1 - Lobar pneumonia, unspecified organism Category: Medical Code(s): J18.9 - Pneumonia, unspecified organism (2) Stage 3 chronic kidney disease Current visit: Yes Status: Chronic Category: Medical Code(s): N18.3 - Chronic kidney disease, stage 3 (moderate) (3) Anemia Current visit: Yes Status: Chronic Qualifiers: Anemia type: unspecified type Qualified Code(s): D64.9 - Anemia, unspecified Category: Medical Code(s): D64.9 - Anemia, unspecified (4) COPD exacerbation Current visit: Yes Status: Acute Category: Medical Code(s): J44.1 - Chronic obstructive pulmonary disease with (acute) exacerbation (5) NSTEMI (non-ST elevation myocardial infarction) Current visit: Yes Status: Acute Category: Medical Code(s): I21.4 - Non-ST elevation (NSTEMI) myocardial infarction Occurred during nebulizer treatment with Duoneb. Likely due to supply-demand mismatch. Consult cardiology today - Assessment and plan all Dx Assessment and Plan for all problems:: Improving from a respiratory standpoint. Plan for trial off of supplemental oxygen and theoretically could discharge home on oral antibiotics with outpatient follow-up in 1 week. Anemia studies are pending, Hgb and Hct are stable. Creatinine stable. Will consult cardiology today. Acute symptoms are resolved, vitals are stable. Will likely need further cardiology assessment after acute respiratory infection/exacerbation is resolved
[2018-03-08 09:14] LABS: Lymphocytes % 7 % (10-50); Monocytes % 3 % (2-9); Neutrophils % 90 % (42-76); Total Cells Counted 100
--- NOTE | 2018-03-08 10:45 | Consult Report ---
History of Present Illness Consult date: 03/08/18 (1030 am) Requesting physician: Kenji Dorantes Consult reason: chest pain Chief complaint: chest pain History of present illness: This is a 77-year-old white female who is admitted to the hospital for 3-4-day history of shortness of breath cough and sputum production. The patient was found to have a right lower lobe pneumonia and is currently being treated with this with antibiotics. Yesterday the patient did have some EKG changes with shortness of breath. She had serial troponins and her third troponin was elevated at 0.14. During the night last night the patient did have sudden onset of chest tightness in the center of her chest that radiated to her neck and her bilateral jaws. The patient states that this lasted for several minutes before it resolved. She states that she has never had symptoms like this before. It was a moderate to severe pain. She had some associated shortness of breath. The patient has an elevated troponin consistent with a non-ST elevation myocardial infarction. Today she reports her shortness of breath is better. She denies any fever chills nausea vomiting diarrhea. [facility] History Medical History: Reports:: Atherosclerotic Heart Disease, Atrial Fibrillation, Chronic Obstructive Pulmonary Disease (COPD), Coronary Artery Disease, Cerebrovascular Accident (Hemorrhagic, with lasting left sided weakness), Joselyn rointestinal Bleed (gastric ulcers), Hyperlipidemia, Hypertension, Lung Disease (COPD), Myocardial Infarction, Peripheral Vascular Disease, Renal Insufficiency (baseline creatinine 1.3), Seizures Denies:: Cancer, Diabetes Mellitus Type 1, Diabetes Mellitus Type 2, Internal Pacemaker, MRSA Have you ever received a pneumonia vaccine?: No Have you received a flu vaccine this season?: Yes Other Medical History: Reports: Anemia, Arthritis, Cataracts Laterality Cases: Bilateral: Tonsillectomy Other Surgeries: Yes: Cardiac Catheterization, Tubal Ligation. No: Pacemaker Amputation: No Fractures: No - *Social History Educational Level: Completed High School Smoking Status: Former smoker Tobacco Type: cigarettes # Packs/Day (cigarettes): 2 #Yrs smoked (if former smoker): 45 Smoking End Date: 2011 Alcohol Intake: never Occupational Status: retired Housing: house Household Members: spouse Travel in the last 8 weeks: None - Psychiatric History Expresses thoughts of harming self/others: None Suicide Plan Description: No Plan *Family Hx:: Cancer, Coronary Artery Disease, Heart Attack, Hyperlipidemia, Hypertension Meds Home Medications Medication Instructions Recorded Confirmed Type Aspirin [Aspir 81] 81 mg PO DAILY 07/09/17 03/06/18 History Atorvastatin Calcium [Atorvastatin 80 mg PO HS 07/09/17 03/06/18 History 80mg Tab] Multivitamin/Iron/Folic Acid 1 each PO DAILY 07/09/17 03/06/18 History [Multi Complete-Iron Tablet] Tiotropium [place] [Spiriva 1 puff INHALATION DAILY 07/09/17 03/06/18 History 18mcg/puff inhaler] Amlodipine Besylate [Norvasc 5mg 5 mg PO DAILY 07/20/17 03/06/18 History tablet] Metoprolol Tartrate 50 mg PO BID 07/20/17 03/06/18 History Gabapentin [Gabapentin 300mg Cap] 300 mg PO HS 01/21/18 03/07/18 History Lisinopril [Lisinopril 5mg Tablet] 5 mg PO DAILY 01/21/18 03/06/18 History Omeprazole [Omeprazole 20mg 20 mg PO DAILY 01/21/18 03/06/18 History Capsule] Potassium Chloride [K-Tab ER 10 20 meq PO DAILY 01/21/18 03/06/18 History mEq] Sertraline HCl [Zoloft 50mg tablet] 50 mg PO HS 01/21/18 03/06/18 History hydroCHLOROthiazide [HCTZ 25mg 25 mg PO DAILY 01/21/18 03/06/18 History tab] Cholecalciferol (Vitamin D3) 2,000 unit PO DAILY 01/22/18 03/06/18 History [Vitamin D3] Allergies Allergy/AdvReac Type Severity Reaction Status Date / Time adhesive tape Allergy Intermediate I-RASH Verified 07/09/17 08:55 poison ted extract Allergy Unknown "COVERS Verified 07/09/17 08:55 BODY" Review of Systems - Review of Systems Review of systems:: pertinent systems reviewed and negative unless documented below - Constitutional Reports fatigue - *Cardiovascular Reports chest pain, Reports chest pain at rest, Reports shortness of breath, Reports shortness of breath with activity, Reports radiating jaw, neck or arm pain - *Respiratory Reports change in phlegm color, Reports cough, Reports shortness of breath, Reports shortness of breath with activity - *Neurologic Reports weakness, Denies seizure-like activity Exam Vital signs and Labs for Last 24 Hours: Temp Pulse Resp BP Pulse Ox 97.9 F 91 H 18 137/66 94 L 03/08/18 08:00 03/08/18 08:00 03/08/18 08:00 03/08/18 08:00 03/08/18 09:12 Laboratory Results - last 24 hr 03/07/18 09:40: Chlamy pneumoniae PCR Not detected, Adenovirus (PCR) Not detected, B. pertussis DNA (PCR) Not detected, Coronavirus OC43 (PCR) Not detected, Coronavirus HKU1 (PCR) Not detected, Coronavirus 229E (PCR) Not detected, Coronavirus NL63 (PCR) Not detected, Human Metapneumovir PCR Not detected, Influenza A (H1) PCR Not detected, Influ A (H1N1/09) PCR Not detected, Influenza A (H3) PCR Not detected, Influenza Type A (PCR) Not detected, Influenza Type B (PCR) Not detected, M. pneumoniae (PCR) Not detected, Parainfluenza 1 (PCR) Not detected, Parainfluenza 2 (PCR) Not detected, Parainfluenza 3 (PCR) Not detected, Parainfluenza 4 (PCR) Not detected, RSV (PCR) Not detected, Entero/Rhino (PCR) Not detected 03/07/18 19:55: Total Creatine Kinase 333 H, CK-MB (CK-2) 5.4 H, CK-MB (CK-2) Rel Index 1.6, Troponin I < 0.02 03/07/18 23:13: Troponin I 0.05 03/08/18 02:45: Troponin I 0.14 H 03/08/18 06:35: WBC 15.0 H D, RBC 3.69 L, Hgb 10.0 L, Hct 31.1 L, MCV 84.3, MCH 27.0, MCHC 32.0, RDW 16.4, Plt Count 338 D, MPV 7.6, Neut % (Auto) 90.0 H, Lymph % (Auto) 6.4 L, [place] % (Auto) 3.5, Eos % (Auto) 0.0 L, Baso % (Auto) 0.0 L , Neut # (Auto) 13.5 H, Lymph # (Auto) 1.0, [place] # (Auto) 0.5, Eos # (Auto) 0.0, Baso # (Auto) 0.0, Total Counted 100, Neutrophils % (Manual) 90 H, Lymphocytes % (Manual) 7 L, Monocytes % (Manual) 3, Platelet Estimate Normal 03/08/18 06:35: Sodium 141, Potassium 4.3, Chloride 106, Carbon Dioxide 22, Anion Gap 17.3 H, BUN 23 H, Creatinine 1.39 H, Estimated Creat Clear 39, Estimated GFR 37 L, Est GFR ( Amer) 44 L, Glucose 139 H, Calcium 8.8 03/08/18 06:35: Ferritin 35 I & O for Last 24 hours: Intake & Output 03/05/18 03/06/18 03/07/18 03/08/18 23:59 23:59 23:59 23:59 Intake Total 1977 / 1977 360 / 360 Output Total 500 / 500 Balance 1478 / 1478 360 / 360 Weight 164 lb 2 oz 165 lb 5 oz 167 lb 3 oz Microbiology Reports for the Last 24 Hours: Microbiology 03/06/18 21:23 Sputum - Expectorated Sputum Gram Stain - Final 03/06/18 21:23 Sputum - Expectorated Sputum Sputum Culture - Preliminary Narrative: EKG #1 shows sinus rhythm with old inferior myocardial infarction pattern and poor R wave progression. EKG #2 shows sinus tachycardia with an old inferior myocardial infarction pattern, poor R wave progression, ST and T wave abnormalities. EKG #3 shows sinus tachycardia with old inferior NC pattern, poor R wave progression, ST and T wave abnormalities. EKG #4 shows sinus rhythm with old inferior myocardial infarction pattern. - Constitutional no acute distress, average body habitus, cooperative - *Routine HEENT Exam Head: Present: normocephalic, atraumatic Eye: Present: EOMI, PERRL ENT: Present: mucous membranes moist - *Routine Neck Exam Present: supple, full ROM, normal carotid upstroke. Absent: JVD, carotid bruit, lymphadenopathy - *Routine Respiratory Exam Present: decreased breath sounds, rhonchi (RLL) - *Routine Cardiovascular Exam Present: RRR, Normal S1, Normal S2. Absent: murmur, gallop - *Routine Abdominal Exam Present: soft, normoactive bowel sounds. Absent: tenderness, distended - *Routine Extremities Exam Present: full ROM, pulses intact. Absent: cyanosis, clubbing, edema - *Routine Skin Exam Present: warm. Absent: rash - *Routine Neurological Exam Present: alert, oriented X3, CN II-XII intact. Absent: sensory deficit, motor deficit - Routine Psychiatric Exam Present: normal affect, normal thought process Assessment and Plan (1) NSTEMI (non-ST elevation myocardial infarction) Current visit: Yes Status: Acute Category: Medical Code(s): I21.4 - Non-ST elevation (NSTEMI) myocardial infarction (2) Community acquired pneumonia Current visit: Yes Status: Acute Qualifiers: Laterality: right Lung location: lower lobe of lung Qualified Code(s): J18.1 - Lobar pneumonia, unspecified organism Category: Medical Code(s): J18.9 - Pneumonia, unspecified organism (3) Stage 3 chronic kidney disease Current visit: Yes Status: Chronic Category: Medical Code(s): N18.3 - Chronic kidney disease, stage 3 (moderate) (4) Anemia Current visit: Yes Status: Chronic Qualifiers: Anemia type: unspecified type Qualified Code(s): D64.9 - Anemia, unspecified Category: Medical Code(s): D64.9 - Anemia, unspecified (5) COPD exacerbation Current visit: Yes Status: Acute Category: Medical Code(s): J44.1 - C hronic obstructive pulmonary disease with (acute) exacerbation (6) CAD (coronary artery disease) Current visit: Yes Status: Chronic Category: Medical Code(s): I25.10 - Atherosclerotic heart disease of [place] coronary artery without angina pectoris (7) HHD (hypertensive heart disease) Current visit: Yes Status: Chronic Category: Medical Code(s): I11.9 - Hypertensive heart disease without heart failure (8) HLD (hyperlipidemia) Current visit: Yes Status: Chronic Category: Medical Code(s): E78.5 - Hyperlipidemia, unspecified - Assessment and plan all Dx Assessment and Plan for all problems:: Plan: 1. The patient was admitted to the hospital initially with shortness of breath and diagnosed with pneumonia. She is getting IV antibiotics for her right lower lobe pneumonia. Will defer the care provider. 2. The patient did have some EKG changes and had to troponins. Her initial troponin was less than 0.02 her second troponin was 0.05 and her third troponin was elevated at 0.14 consistent with a non-ST elevation myocardial infarct. 3. The patient did have some chest tightness throughout the night. She states that this was a pressure type sensation in the center of her chest that radiated up to her neck and. She was short of breath and this was a moderate to severe in intensity. This occurred at rest and nothing made the symptoms better or worse. It lasted several minutes and then resolved the patient is having typical angina as well. 4. Given her non-ST elevation myocardial infarction we will get the patient started on a heparin drip. Pharmacy will dose. 5. Will also get her started on half an inch of Nitropaste every 6 hours. 6. Will increase her metoprolol to 75 mg p.o. twice daily for better blood pressure and heart rate control. 7. Antianginals include a beta-marck, calcium channel marck, and nitroglycerin. Patient is on Aspirin 81 mg daily. 8. We will get an echocardiogram to evaluate her LV function. 9. We will plan to proceed with left cardiac catheterization today with right groin access with Dr. Paul. The patient has been educated on the risks and benefits of proceeding with left cardiac catheterization. She has verbalized u nderstanding and is agreeable in proceeding with the procedure. 10. The patient has known coronary artery disease. She states that in 2016 she was supposed to go to [place] to get stents. However she ended up having a stroke and never had cardiac stents placed. Patient has not followed up with cardiology since 2016. Coronary artery disease is present. 11. Her blood pressure is acceptable but could be under better control. Her metoprolol has been increased. 12. Her LDL goal is less than 55. She has been started on high intensity statin. 13. Further recommendations will be made pending the patient's response to treatment following her echocardiogram and left cardiac catheterization later today. Thank you for the opportunity to participate in care of this patient.
--- NOTE | 2018-03-08 11:30 | Pharmacy Consult Notes ---
[facility] Heparin Dosing - Demographic Data Admission date:: 03/08/18 Date: 03/08/18 Time: 10:30 Allergies/Adverse Reactions: Allergies Allergy/AdvReac Type Severity Reaction Status Date / Time adhesive tape Allergy Intermediate I-RASH Verified 07/09/17 08:55 poison ted extract Allergy Unknown "COVERS Verified 07/09/17 08:55 BODY" Height: 1.63 m Weight: 78.835 kg - Indication Medication therapy:: Heparin Current Indications:: NSTEMI CVA?: No Bleeding problem?: No Kidney disease?: No GA?: Yes Desired PTT range:: 60-80 seconds - Labs Anticoagulation Lab Results:: 03/08/18 06:35 Hgb 10.0 L Hct 31.1 L Plt Count 338 D - Monitoring Dose Monitor 1 Date: 03/08/18 Time: 11:24 PTT Result:: 25.6 Infusion Rate:: 18 ML/HR (900 UNITS/HR) Comment:: 4500 UNIT BOLUS - Core Measures Is INR > or = 2 at discharge?: No Most Recent Labs:: Laboratory Results - last 24 hr 03/07/18 09:40: Chlamy pneumoniae PCR Not detected, Adenovirus (PCR) Not detected, B. pertussis DNA (PCR) Not detected, Coronavirus OC43 (PCR) Not detected, Coronavirus HKU1 (PCR) Not detected, Coronavirus 229E (PCR) Not detected, Coronavirus NL63 (PCR) Not detected, Human Metapneumovir PCR Not detected, Influenza A (H1) PCR Not detected, Influ A (H1N1/09) PCR Not detected, Influenza A (H3) PCR Not detected, Influenza Type A (PCR) Not detected, Influenza Type B (PCR) Not detected, M. pneumoniae (PCR) Not detected, Parainfluenza 1 (PCR) Not detected, Parainfluenza 2 (PCR) Not detected, Parainfluenza 3 (PCR) Not detected, Parainfluenza 4 (PCR) Not detected, RSV (PCR) Not detected, Entero/Rhino (PCR) Not detected 03/07/18 19:55: Total Creatine Kinase 333 H, CK-MB (CK-2) 5.4 H, CK-MB (CK-2) Rel Index 1.6, Troponin I < 0.02 03/07/18 23:13: Troponin I 0.05 03/08/18 02:45: Troponin I 0.14 H 03/08/18 06:35: WBC 15.0 H D, RBC 3.69 L, Hgb 10.0 L, Hct 31.1 L, MCV 84.3, MCH 27.0, MCHC 32.0, RDW 16.4, Plt Count 338 D, MPV 7.6, Neut % (Auto) 90.0 H, Lymph % (Auto) 6.4 L, [place] % (Auto) 3.5, Eos % (Auto) 0.0 L, Baso % (Auto) 0.0 L , Neut # (Auto) 13.5 H, Lymph # (Auto) 1.0, Dare # (Auto) 0.5, Eos # (Auto) 0.0, Baso # (Auto) 0.0, Total Counted 100, Neutrophils % (Manual) 90 H, Lymphocytes % (Manual) 7 L, Monocytes % (Manual) 3, Platelet Estimate Normal 03/08/18 06:35: Sodium 141, Potassium 4.3, Chloride 106, Carbon Dioxide 22, Anion Gap 17.3 H, BUN 23 H, Creatinine 1.39 H, Estimated Creat Clear 39, Estimated GFR 37 L, Est GFR ( Amer) 44 L, Glucose 139 H, Calcium 8.8 03/08/18 06:35: Ferritin 35 Were Heparin and Warfarin started on the same day?: No Comments:: PATIENT TAKEN TO [employer] AND SHIPPED OUT.
--- NOTE | 2018-03-08 18:33 | Discharge Summary ---
General - General Admission date:: 03/06/18 Discharge date: 03/08/18 HPI HPI: 77 yr old female seen today after being admitted last evening through the emergency department. She reports 3-4 days of cough, progressive shortness of breath and thick sputum that is difficult to expectorate. In the emergency department she was found to have an elevated WBC, was febrile and CXR showed right lower lobe atelectasis and she was admitted for management of COPD exacerbation and presumed community acquired pneumonia. She does report a history of COPD, last hospitalized for exacerbation in December 2017. She sees her farm machinery erector routinely (Dr Bhatia) and just saw him about a month ago. She has had some exposure at home to family members with mild URI symptoms. She has had influenza vaccination this season but reports she has never had a pneumococcal vaccination. Hospital Course Hospital Course: Ms. Kwok was admitted for seedy exacerbation versus pneumonia. On initially to therapy but after getting a breathing treatment on second day of admission noted to have some tachycardia, ST depressions, anginal symptoms, and mild bump in troponin. Was treated with nitroglycerin paste, Tranxene of breathing treatments to Xopenex, aspirin 325 load, enoxaparin, and cardiology consult. Chest pain improved. Was seen by cardiology the following morning were decision was made to do diagnostic heart cath. During heart catheterization there were complications leading to cardiac arrest with resuscitation necessitating emergent transfer to tertiary care center. Patient was discharged in critical condition and deferred to for higher level care. Objective Vital signs: Temp Pulse Resp BP Pulse Ox 99.5 F 102 H 16 99/48 L 100 03/08/18 11:42 03/08/18 17:23 03/08/18 17:23 03/08/18 17:23 03/08/18 17:10 Narrative: Physical exam and per progress note earlier today Results Labs on day of discharge: Labs from last 24 hours 03/08/18 03/08/18 03/08/18 15:34 14:16 11:00 WBC RBC Hgb Hct MCV MCH MCHC RDW Plt Count MPV Neut % (Auto) Lymph % (Auto) [place] % (Auto) Eos % (Auto) Baso % (Auto) Neut # (Auto) Lymph # (Auto) [place] # (Auto) Eos # (Auto) Baso # (Auto) Total Counted Neutrophils % (Manual) Lymphocytes % (Manual) Monocytes % (Manual) Platelet Estimate APTT 25.6 Activated Clotting Time > 400 H* D < 74 L Sodium Potassium Chloride Carbon Dioxide Anion Gap BUN Creatinine Estimated Creat Clear Estimated GFR Est GFR ( Amer) Glucose Calcium Ferritin Total Creatine Kinase CK-MB (CK-2) CK-MB (CK-2) Rel Index Troponin I 03/08/18 03/08/18 03/08/18 06:35 06:35 06:35 WBC 15.0 H D RBC 3.69 L Hgb 10.0 L Hct 31.1 L MCV 84.3 MCH 27.0 MCHC 32.0 RDW 16.4 Plt Count 338 D MPV 7.6 Neut % (Auto) 90.0 H Lymph % (Auto) 6.4 L [place] % (Auto) 3.5 Eos % (Auto) 0.0 L Baso % (Auto) 0.0 L Neut # (Auto) 13.5 H Lymph # (Auto) 1.0 [place] # (Auto) 0.5 Eos # (Auto) 0.0 Baso # (Auto) 0.0 Total Counted 100 Neutrophils % (Manual) 90 H Lymphocytes % (Manual) 7 L Monocytes % (Manual) 3 Platelet Estimate Normal APTT Activated Clotting Time Sodium 141 Potassium 4.3 Chloride 106 Carbon Dioxide 22 Anion Gap 17.3 H BUN 23 H Creatinine 1.39 H Estimated Creat Clear 39 Estimated GFR 37 L Est GFR ( Amer) 44 L Glucose 139 H Calcium 8.8 Ferritin 35 Total Creatine Kinase CK-MB (CK-2) CK-MB (CK-2) Rel Index Troponin I 03/08/18 03/07/18 03/07/18 02:45 23:13 19:55 WBC RBC Hgb Hct MCV MCH MCHC RDW Plt Count MPV Neut % (Auto) Lymph % (Auto) [place] % (Auto) Eos % (Auto) Baso % (Auto) Neut # (Auto) Lymph # (Auto) [place] # (Auto) Eos # (Auto) Baso # (Auto) Total Counted Neutrophils % (Manual) Lymphocytes % (Manual) Monocytes % (Manual) Platelet Estimate APTT Activated Clotting Time Sodium Potassium Chloride Carbon Dioxide Anion Gap BUN Creatinine Estimated Creat Clear Estimated GFR Est GFR ( Amer) Glucose Calcium Ferritin Total Creatine Kinase 333 H CK-MB (CK-2) 5.4 H CK-MB (CK-2) Rel Index 1.6 Troponin I 0.14 H 0.05 < 0.02 Preliminary micro results at discharge 03/06/18 21:23 Sputum Culture - Preliminary Sputum - Expectorated Sputum DS: Diagnosis - Discharge Diagnosis (1) NSTEMI (non-ST elevation myocardial infarction) Status: Acute (2) Community acquired pneumonia Status: Acute (3) Stage 3 chronic kidney disease Status: Chronic (4) Anemia Status: Chronic (5) COPD exacerbation Status: Acute (6) CAD (coronary artery disease) Status: Chronic (7) HHD (hypertensive heart disease) Status: Chronic (8) HLD (hyperlipidemia) Status: Chronic Discharge Plan - Patient Discharge Instructions ACTIVITY: Bed rest DIET: NPO Patient Instructions: DI for Cardiac Catheterization, DI for Surgical Site Infection - Follow up Plan Disposition: Xfer Short-Term Hosp Home Medications: Home Medications Medication Instructions Recorded Confirmed Type Aspirin [Aspir 81] 81 mg PO DAILY 07/09/17 03/06/18 History Atorvastatin Calcium [Atorvastatin 80 mg PO HS 07/09/17 03/06/18 History 80mg Tab] Multivitamin/Iron/Folic Acid 1 each PO DAILY 07/09/17 03/06/18 History [Multi Complete-Iron Tablet] Tiotropium [place] [Spiriva 1 puff INHALATION DAILY 07/09/17 03/06/18 History 18mcg/puff inhaler] Amlodipine Besylate [Norvasc 5mg 5 mg PO DAILY 07/20/17 03/06/18 History tablet] Metoprolol Tartrate 50 mg PO BID 07/20/17 03/06/18 History Gabapentin [Gabapentin 300mg Cap] 300 mg PO HS 01/21/18 03/07/18 History Lisinopril [Lisinopril 5mg Tablet] 5 mg PO DAILY 01/21/18 03/06/18 History Omeprazole [Omeprazole 20mg 20 mg PO DAILY 01/21/18 03/06/18 History Capsule] Potassium Chloride [K-Tab ER 10 20 meq PO DAILY 01/21/18 03/06/18 History mEq] Sertraline HCl [Zoloft 50mg tablet] 50 mg PO HS 01/21/18 03/06/18 History hydroCHLOROthiazide [HCTZ 25mg 25 mg PO DAILY 01/21/18 03/06/18 History tab] Cholecalciferol (Vitamin D3) 2,000 unit PO DAILY 01/22/18 03/06/18 History [Vitamin D3] Prescriptions/Medication Reconciliation: New Levalbuterol HCl [Xopenex 1.25mg/3mL neb] 1.25 mg IH Q8 vial.neb Enoxaparin Sodium [Lovenox 40mg/0.4mL syringe] 40 mg SQ DAILY syringe Continue Multivitamin/Iron/Folic Acid [Multi Complete-Iron Tablet] 1 each PO DAILY Aspirin [Aspir 81] 81 mg PO DAILY Tiotropium [place] [Spiriva 18mcg/puff inhaler] 1 puff INHALATION DAILY Atorvastatin Calcium [Atorvastatin 80mg Tab] 80 mg PO HS Metoprolol Tartrate 50 mg PO BID Amlodipine Besylate [Norvasc 5mg tablet] 5 mg PO DAILY Omeprazole [Omeprazole 20mg Capsule] 20 mg PO DAILY hydroCHLOROthiazide [HCTZ 25mg tab] 25 mg PO DAILY Gabapentin [Gabapentin 300mg Cap] 300 mg PO HS Lisinopril [Lisinopril 5mg Tablet] 5 mg PO DAILY Cholecalciferol (Vitamin D3) [Vitamin D3] 2,000 unit PO DAILY Potassium Chloride [K-Tab ER 10 mEq] 20 meq PO DAILY Sertraline HCl [Zoloft 50mg tablet] 50 mg PO HS
--- NOTE | 2018-03-08 21:00 | Cardiology Report ---
PROCEDURE: 2-D M-mode and color Doppler study INDICATIONS FOR THE TEST: Chest pain COPD+ Heart Murmur Tobacco Smoking Palpitations Fatigue Syncope Edema Hypertension Diabetes Mellitus Rheumatic Fever SOB [place] Obesity Hyperlipidemia Family History HD Additional History NSTEMI,PNEUMONIA,CKD PATIENT INFORMATION HEIGHT: 62 WEIGHT:167 GENDER: Female B/P:132/62 2-D/M-MODE INTERPRETATION: 2-D MEASUREMENTS OBSERVED VALUES IN CMS Right Ventricular Dimension (RVDd) DIA Interventricular Septum (Thickness)(IVsd) 0.9 Left Ventricular Internal Dimensions(LVIDd) 6.1 Left Ventricular Posterior Wall (Thickness)(LVPWd) 0.9 Aortic Root 1.9 Aortic Cusp Separation 1.6 Left Atrial Dimensions (LAD) 3.0 2D 1. Technically difficult study because of the patient's factor and poor acoustic windows 2. The left atrium is mildly enlarged, left ventricle is mildly dilated, ejection fraction approximately 50%, endocardial surfaces are poorly visualized, there appears to be moderate hypokinesis involving the inferolateral and posterolateral wall. 3. The right atrium and right ventricle are relatively normal size and contractility. 4. The aortic valve is thickened and calcified display mobility. 5. The mitral valve leaflets are not well visualized, there is degenerative changes present in both anterior and posterior mitral, there is no mitral stenosis. 6. The tricuspid valve is grossly normal. 7. The pulmonic valve is poorly visualized. 8. No significant pericardial effusion noted. DOPPLER INTERROGATION: Doppler interrogation of the aortic, mitral and tricuspid valve reveals presence of mitral regurgitation which is difficult to quantify this is likely in severe range, if clinically indicated transesophageal echocardiogram is recommended to evaluate the morphology of the mitral valve, and associated the mitral regurgitation. There is mild tricuspid regurgitation noted, tricuspid regurgitation jet velocity is inadequate for calculation of the right ventricular systolic pressure, tissue Doppler is indicative of raised left atrial pressure. CONCLUSION: 1. Mildly enlarged left atrium, mildly dilated left ventricle, visually estimated ejection fraction 50% with segmental wall motion abnormality described above, Doppler evidence of raised left atrial pressure. 2. Abnormal mitral valve associated with mitral regurgitation is likely in severe range, if clinically indicated transesophageal echocardiogram is recommended. 3. No significant pericardial effusion noted.
== END 2018-03-08 17:40 | disposition short-term general hospital (02) | DRG 981 ==
LOC: ER 21:02 → 2ND 21:02 → OBSVTOIN 23:30 → 2ND 23:34
PROVIDERS: ADMIT Family Medicine; ATTEND Internal Medicine Adolescent Medicine
CPT/HCPCS: 33970; 36415; 71010; 71045; 80048; 80053; 81001; 82550; 82553; 82607; 82728; 83540; 83550; 83605; 83735; 84484; 85007; 85025; 85347; 85730; 87040; 87070; 87205; 87275; 87276; 87486; 87581; 87633; 87798; 92928; 93005; 93306; 93458; 93571; 94640; 94760; 94761; 96365; 96367; 96375; 99152; 99153; 99285; C1725; C1769; C1876; C1894; C9600; J0456; J1644; J2704